=== PATIENT | female | born 1965 | race African-American/Black ===

== ENCOUNTER 2018-06-25 09:39 | Inpatient (IN) | payer OTHER, MEDICAID ==
[~2018-06-25] VITALS: Ht 162.6 cm; Wt 75.3 kg
[~2018-06-25 09:39] MED LIST: ADVAIR; ALBU2TAB44; DILANTIN; KEPPRA; PREDNISONE; VICODIN
[2018-06-25] MEDS ORDERED: ALBUTEROL (0.083%) 2.5MG/3ML NEB HHN STA (10:16)
[2018-06-25] MEDS ORDERED: IPRATROPIUM BROMIDE (0.02%) 0.5MG/2.5ML NEB HHN STA (10:16)
[2018-06-25] MEDS ORDERED: METHYLPREDNISOLONE SOD SUCC 125 MG/2 ML VIAL IV STA (10:16)
[2018-06-25] MEDS ORDERED: ASPIRIN 81MG TABLET PO ONE (10:30)
[2018-06-25] MEDS ORDERED: NITROGLYCERIN 0.4MG TABLET SL SL PRN (10:30)
[2018-06-25 11:14] LABS: HEMATOCRIT. 34.8 % (36.0-48.0); HEMOGLOBIN. 11.1 g/dL (12.0-16.0); MEAN CORPUSCULAR HEMOGLOBIN 24.8 pg (28.0-32.0); MEAN CORPUSCULAR VOLUME 77.7 fL (81.0-99.0); MEAN PLATELET VOLUME 9.3 fl (7.4-10.4); PLATELET 491 x1000/uL (130-400); RED BLOOD CELL COUNT 4.47 mill/uL (4.2-5.4); RED CELL DISTRIBUTION WIDTH 21.9 % (11.6-14.6)
[2018-06-25 11:34] LABS: PLATELET ESTIMATE INCREASED
[2018-06-25] MEDS ORDERED: SODIUM CHLORIDE 0.9% 1000ML BAG (SEPSIS BOLUS) IV ONE (11:45)
[2018-06-25] MEDS ORDERED: LEVOFLOXACIN 750MG PREMIX 150 ML IV ONE (11:45)
[2018-06-25 12:38] LABS: CHLORIDE 106 mEq/L (98-107)
[2018-06-25 12:41] LABS: PARTIAL THROMBOPLASTIN TIME 29.2 sec (23.4-31.0); PROTHROMBIN TIME 9.8 sec (9.1-11.1)
[2018-06-25 15:06] VITALS: BP 143/83
[2018-06-25 15:27] VITALS: BP 143/83
[2018-06-25] MEDS ORDERED: ONDANSETRON HCL 4MG/2ML INJ IV PRN (16:45)
[2018-06-25] MEDS: ENOXAPARIN 40MG/0.4ML SYR SUBCUT SCH (17:59)
[2018-06-25] MEDS: THIAMINE HCL 100MG TABLET PO SCH (17:59)
[2018-06-25] MEDS: HYDROCODONE/ACETAMINOPHEN 5/325MG TABLET PO PRN (18:02)
[2018-06-25] MEDS: METHYLPREDNISOLONE SOD SUCC 125 MG/2 ML VIAL IV SCH (19:57)
[2018-06-25 20:00] VITALS: BP 123/79
[2018-06-25] MEDS: MORPHINE SULFATE 4 MG/ML CPJ (NOT FOR IM USE) IV PRN (20:21)
[2018-06-26] VITALS: BP 127/74
[2018-06-26] MEDS: METHYLPREDNISOLONE SOD SUCC 125 MG/2 ML VIAL IV SCH ×3 (03:42→18:33)
[2018-06-26] MEDS: MORPHINE SULFATE 4 MG/ML CPJ (NOT FOR IM USE) IV PRN ×4 (03:54→19:57)
[2018-06-26 04:00] VITALS: BP 136/76
[2018-06-26 05:06] LABS: CLARITY URINE CLEAR (CLEAR); COLOR URINE YELLOW (YELLOW); KETONES URINE NEGATIVE (NEGATIVE); LEUKOCYTE ESTERASE URINE NEGATIVE (NEGATIVE); NITRITE URINE NEGATIVE (NEGATIVE); OCCULT BLOOD URINE NEGATIVE (NEGATIVE); PROTEIN URINE NEGATIVE (NEGATIVE); SPECIFIC GRAVITY URINE 1.008 (1.005-1.030); UROBILINOGEN URINE 0.2 E.U./dL (0.2-1.0)
[2018-06-26 05:17] LABS: METHADONE URINE SCREEN NEGATIVE (NEGATIVE); OPIATES URINE SCREEN PRESUMTIVE POSITIVE (NEGATIVE); PHENCYCLIDINE URINE SCREEN PRESUMTIVE POSITIVE (NEGATIVE)
[2018-06-26 05:18] LABS: *AMPHETAMINES SCREEN URINE NEGATIVE (NEGATIVE); *BARBITURATES SCREEN URINE NEGATIVE (NEGATIVE); *BENZODIAZEPINES SCREEN URINE PRESUMTIVE POSITIVE (NEGATIVE); *COCAINE SCREEN URINE PRESUMTIVE POSITIVE (NEGATIVE); CANNABINOID URINE SCREEN PRESUMTIVE POSITIVE (NEGATIVE)
[2018-06-26 06:45] LABS: HEMATOCRIT. 33.2 % (36.0-48.0); HEMOGLOBIN. 10.2 g/dL (12.0-16.0); MEAN CORPUSCULAR HEMOGLOBIN 24.4 pg (28.0-32.0); PLATELET 411 x1000/uL (130-400); RED CELL DISTRIBUTION WIDTH 20.7 % (11.6-14.6)
[2018-06-26 06:59] LABS: CHLORIDE 107 mEq/L (98-107)
[2018-06-26 07:12] LABS: PHOSPHORUS 2.9 mg/dL (2.5-4.9)
[2018-06-26 08:00] VITALS: BP 124/85
[2018-06-26] MEDS: THIAMINE HCL 100MG TABLET PO SCH (09:30)
[2018-06-26] MEDS: FOLIC ACID 1MG TABLET PO SCH (09:30)
[2018-06-26] MEDS: ASPIRIN 81MG EC TABLET PO SCH (09:30)
[2018-06-26 12:00] VITALS: BP 131/67
[2018-06-26] MEDS: AZITHROMYCIN 500 MG in DEXT 5% WATER 250 ML IV SCH (13:03)
[2018-06-26] MEDS: CEFTRIAXONE 1 G PREMIX 50 ML IV SCH (13:03)
[2018-06-26] MEDS: IPRATROPIUM/ALBUTEROL 0.5-3(2.5)MG/3ML NEB INH PRN ×2 (15:05→21:58)
[2018-06-26 16:00] VITALS: BP 125/74
[2018-06-26] MEDS: ENOXAPARIN 40MG/0.4ML SYR SUBCUT SCH (18:33)
[2018-06-26 19:55] VITALS: BP 135/66
[2018-06-27] VITALS: BP 127/72
[2018-06-27] MEDS: MORPHINE SULFATE 4 MG/ML CPJ (NOT FOR IM USE) IV PRN ×6 (00:46→22:15)
[2018-06-27] MEDS: METHYLPREDNISOLONE SOD SUCC 125 MG/2 ML VIAL IV SCH ×3 (00:47→17:54)
[2018-06-27 04:00] VITALS: BP 135/74
[2018-06-27 08:00] VITALS: BP 123/68
[2018-06-27] MEDS: ASPIRIN 81MG EC TABLET PO SCH (09:10)
[2018-06-27] MEDS: THIAMINE HCL 100MG TABLET PO SCH (09:10)
[2018-06-27] MEDS: FOLIC ACID 1MG TABLET PO SCH (09:10)
[2018-06-27 11:00] LABS: PLATELET ESTIMATE INCREASED
[2018-06-27] MEDS: AZITHROMYCIN 500 MG in DEXT 5% WATER 250 ML IV SCH (11:06)
[2018-06-27] MEDS: CEFTRIAXONE 1 G PREMIX 50 ML IV SCH (11:06)
[2018-06-27 12:00] VITALS: BP 113/89
[2018-06-27 16:00] VITALS: BP 121/81
[2018-06-27] MEDS: ENOXAPARIN 40MG/0.4ML SYR SUBCUT SCH (17:48)
[2018-06-27 20:38] VITALS: BP 132/68
[2018-06-27] MEDS: IPRATROPIUM/ALBUTEROL 0.5-3(2.5)MG/3ML NEB HHN SCH (23:53)
[2018-06-28] VITALS: BP 144/87
[2018-06-28] MEDS: PROMETHAZINE/DEXTROMETHORPHAN 6.25-15MG/5ML BOTTLE 120ML PO PRN (00:06)
[2018-06-28] MEDS: METHYLPREDNISOLONE SOD SUCC 125 MG/2 ML VIAL IV SCH (02:20)
[2018-06-28] MEDS: MORPHINE SULFATE 4 MG/ML CPJ (NOT FOR IM USE) IV PRN ×2 (02:21→08:31)
[2018-06-28 04:00] VITALS: BP 130/66
[2018-06-28] MEDS: IPRATROPIUM/ALBUTEROL 0.5-3(2.5)MG/3ML NEB HHN SCH ×5 (04:27→21:24)
[2018-06-28 06:39] LABS: HEMATOCRIT. 32.3 % (36.0-48.0); HEMOGLOBIN. 9.8 g/dL (12.0-16.0); MEAN CORPUSCULAR HEMOGLOBIN 24.1 pg (28.0-32.0); MEAN CORPUSCULAR VOLUME 79.3 fL (81.0-99.0); MEAN PLATELET VOLUME 9.1 fl (7.4-10.4); PLATELET 419 x1000/uL (130-400); RED BLOOD CELL COUNT 4.08 mill/uL (4.2-5.4); RED CELL DISTRIBUTION WIDTH 20.9 % (11.6-14.6)
[2018-06-28 06:43] LABS: CHLORIDE 108 mEq/L (98-107)
[2018-06-28 06:50] LABS: PHOSPHORUS 3.2 mg/dL (2.5-4.9)
[2018-06-28 08:00] VITALS: BP 153/73
[2018-06-28] MEDS: THIAMINE HCL 100MG TABLET PO SCH (08:32)
[2018-06-28] MEDS: FOLIC ACID 1MG TABLET PO SCH (08:32)
[2018-06-28] MEDS: ASPIRIN 81MG EC TABLET PO SCH (08:32)
[2018-06-28] MEDS ORDERED: METHYLPREDNISOLONE SOD SUCC 40 MG/ML VIAL IV SCH (09:00)
[2018-06-28 12:00] VITALS: BP 132/69
[2018-06-28] MEDS: AZITHROMYCIN 500 MG in DEXT 5% WATER 250 ML IV SCH (12:16)
[2018-06-28] MEDS: HYDROCODONE/ACETAMINOPHEN 5/325MG TABLET PO PRN ×3 (13:34→21:47)
[2018-06-28 16:00] VITALS: BP 136/75
[2018-06-28 16:35] LABS: PLATELET ESTIMATE INCREASED
[2018-06-28] MEDS: LEVOFLOXACIN 500MG TABLET PO SCH (17:44)
[2018-06-28] MEDS: ENOXAPARIN 40MG/0.4ML SYR SUBCUT SCH (17:45)
[2018-06-28 20:00] VITALS: BP 134/86
[2018-06-29] VITALS: BP 133/76
[2018-06-29] MEDS: IPRATROPIUM/ALBUTEROL 0.5-3(2.5)MG/3ML NEB HHN SCH ×5 (00:16→16:45)
[2018-06-29] MEDS: HYDROCODONE/ACETAMINOPHEN 5/325MG TABLET PO PRN ×3 (03:22→15:24)
[2018-06-29 04:00] VITALS: BP 143/76
[2018-06-29 08:00] VITALS: BP 147/80
[2018-06-29] MEDS: THIAMINE HCL 100MG TABLET PO SCH (09:27)
[2018-06-29] MEDS: FOLIC ACID 1MG TABLET PO SCH (09:27)
[2018-06-29] MEDS: ASPIRIN 81MG EC TABLET PO SCH (09:27)
[2018-06-29] MEDS: LEVOFLOXACIN 500MG TABLET PO SCH (10:25)
[2018-06-29] MEDS: PROMETHAZINE/DEXTROMETHORPHAN 6.25-15MG/5ML BOTTLE 120ML PO PRN (10:29)
[2018-06-29 10:49] LABS: BASOPHILS % 0.3 % (0.0-2.0); EOSINOPHILS % 0.7 % (0.0-5.0); HEMOGLOBIN. 10.6 g/dL (12.0-16.0); LYMPHOCYTES % 26.2 % (20.0-50.0); MEAN CORPUSCULAR HEMOGLOBIN 24.6 pg (28.0-32.0); MEAN CORPUSCULAR VOLUME 79.3 fL (81.0-99.0); MEAN PLATELET VOLUME 9.1 fl (7.4-10.4); MONOCYTES % 9.4 % (2.0-8.0); NEUTROPHILS % 63.4 % (40.0-76.0); PLATELET 429 x1000/uL (130-400); RED BLOOD CELL COUNT 4.28 mill/uL (4.2-5.4); RED CELL DISTRIBUTION WIDTH 20.7 % (11.6-14.6)
[2018-06-29 10:58] LABS: CHLORIDE 107 mEq/L (98-107)
[2018-06-29 12:00] VITALS: BP 114/79
[2018-06-29 16:00] VITALS: BP 127/83
[2018-06-29 18:38] VITALS: BP 19/127
== END 2018-06-29 18:55 | disposition home or self-care (01) | DRG 720 ==
LOC: ER 09:39 → 7WST 12:04 → EDBEDREQ 12:07 → ENRESERV 13:15 → 6EST 06-28 18:16
PROVIDERS: ADMIT Internal Medicine Nephrology; ATTEND Internal Medicine Nephrology
DX: A41.9 Sepsis, unspecified organism (principal); J18.9 Pneumonia, unspecified organism; I42.9 Cardiomyopathy, unspecified; J44.0 Chronic obstructive pulmonary disease with (acute) lower respiratory infection; E44.1 Mild protein-calorie malnutrition; J44.1 Chronic obstructive pulmonary disease with (acute) exacerbation; D63.8 Anemia in other chronic diseases classified elsewhere; I10 Essential (primary) hypertension; Z87.01 Personal history of pneumonia (recurrent); Z91.19 Patient's noncompliance with other medical treatment and regimen; Z68.28 Body mass index [BMI] 28.0-28.9, adult; Z88.0 Allergy status to penicillin
CPT/HCPCS: 36415; 71045; 80048; 80305; 83605; 83735; 83880; 84100; 84484; 87804; 93005; 93306; 94640; 94644; 99285; C1893; J0456; J0696; J1650; J1956; J2270; J2920; J2930; J7030; J7060; J7611; J7620

== ENCOUNTER 2018-10-05 11:16 | Emergency (ER) | payer MEDICAID, MEDICARE, OTHER ==
[~2018-10-05] VITALS: Ht 162.6 cm; Wt 71.0 kg
[2018-10-05 12:30] VITALS: BP 153/79
[2018-10-05] MEDS ORDERED: IBUPROFEN 600MG TABLET PO ONE (15:30)
[2018-10-05] MEDS ORDERED: ALBUTEROL (0.083%) 2.5MG/3ML NEB HHN STA (15:51)
== END 2018-10-05 16:00 | disposition home or self-care (01) ==
LOC: ER 11:16
DX: S00.83XA Contusion of other part of head, initial encounter (principal); M25.511 Pain in right shoulder; J44.9 Chronic obstructive pulmonary disease, unspecified; I10 Essential (primary) hypertension; R56.9 Unspecified convulsions; F17.200 Nicotine dependence, unspecified, uncomplicated; Z88.0 Allergy status to penicillin; Z79.899 Other long term (current) drug therapy; Z87.01 Personal history of pneumonia (recurrent); Y08.89XA Assault by other specified means, initial encounter; Y93.89 Activity, other specified; Y92.89 Other specified places as the place of occurrence of the external cause; Y99.8 Other external cause status
CPT/HCPCS: 70450; 70486; 73030; 99284; Z7610; J7611

== ENCOUNTER 2018-12-18 14:32 | Emergency (ER) | payer MEDICARE ==
[~2018-12-18] VITALS: Ht 167.6 cm; Wt 73.0 kg
[2018-12-18] MEDS ORDERED: IBUPROFEN 600MG TABLET PO ONE (18:15)
[2018-12-18] MEDS ORDERED: HYDROCODONE/ACETAMINOPHEN 5/325MG TABLET PO ONE (18:15)
[2018-12-18] MEDS ORDERED: BACITRACIN ZINC OINT UDPKT TOP ONE (19:15)
[2018-12-18] MEDS ORDERED: BACITRACIN 15GM TUBE TOP NR (19:45)
[2018-12-18 19:59] VITALS: BP 148/102
== END 2018-12-18 20:00 | disposition home or self-care (01) ==
LOC: ER 14:32
DX: S40.211A Abrasion of right shoulder, initial encounter (principal); S00.83XA Contusion of other part of head, initial encounter; R42 Dizziness and giddiness; W01.198A Fall on same level from slipping, tripping and stumbling with subsequent striking against other object, initial encounter; Y93.01 Activity, walking, marching and hiking; Y92.480 Sidewalk as the place of occurrence of the external cause; I10 Essential (primary) hypertension
CPT/HCPCS: 70486; 99284